=== PATIENT | female | born 1955 | race Caucasian/White ===

== ENCOUNTER 2022-10-21 13:04 | Emergency (ER) | payer MEDICARE, OTHER, SELFPAY ==
[2022-10-21] VITALS (8 sets, daily range): BP systolic 112–141; BP diastolic 59–78; PULSE 55–60; RESP 12–26; TEMP 36.2; O2SAT 95–97; BMI 31.9
--- NOTE | 2022-10-21 14:30 | ED_ITS ---
HPI - Chest Pain General Chief Complaint: Chest Pain Stated Complaint: Chest pain Time Seen by Provider: 10/21/22 13:29 History of Present Illness HPI narrative: This 67-year-old female comes in reporting sudden onset of chest pain that began about 2-1/2 hours prior to arrival. She states that she was not doing anything exertional and in a standing position when she had rather sudden onset of chest pain which seemed to radiate into her back. She rated this pain at 8/10 in severity and was located in the lower substernal area. She did not have any nausea, vomiting, lightheadedness, shortness of breath, or diaphoresis. The pain dissipated down to 3/10 in severity when she arrived here about 45-60 minutes later. At the time of my evaluation she is not reporting any pain. She states that the pain is a bit reproducible when palpating in the area of the lower sternum. She does not report any recent injury event or strenuous activity. She does not have any exercise intolerance. She is taking a medication for blood pressure and states that her cholesterol is elevated. She reports that she is prediabetic. She is not a smoker. Related Data Home Medications Medication Instructions Recorded Confirmed albuterol sulfate 90 mcg/actuation 2 puff inhalation Q4H PRN 10/21/22 10/21/22 aerosol inhaler gabapentin 300 mg capsule 300 mg PO Q12H 10/21/22 10/21/22 lamotrigine 100 mg tablet 100 mg PO DAILY 10/21/22 10/21/22 lamotrigine 25 mg tablet 25 mg PO DAILY 10/21/22 10/21/22 metoprolol tartrate 25 mg tablet 25 mg PO DAILY 10/21/22 10/21/22 olanzapine 5 mg tablet 5 mg PO DAILY 10/21/22 10/21/22 trazodone 50 mg tablet 50 mg PO HS 10/21/22 10/21/22 warfarin 4 mg tablet 4 mg PO DAILY 10/21/22 10/21/22 Allergies Allergy/AdvReac Type Severity Reaction Status Date / Time No Known Drug Allergies Allergy Verified 10/21/22 14:07 Review of Systems Status of ROS Reports: 10 or more systems reviewed and unremarkable except as noted in History and below Narrative Constitutional: No fevers, no weight gain or loss. Eyes: No discharge. No vision changes. HENT: No congestion, no sore throat, no ear pain. Cardiovascular: No palpitations. Chest pain as described above. Respiratory: No shortness of breath, no wheezes, no cough. Gastrointestinal: No abdominal pain, no vomiting, no diarrhea. Genitourinary: No dysuria, no hematuria. Musculoskeletal: Normal range of motion. Skin: No rashes, no pruritis. Neurological: No dizziness, weakness, sensory change, speech change. Endo/Heme/Allergies: No bruising or bleeding. No polydipsia. Pysch: no suicidality, no anxiety, no insomnia. All other systems reviewed and are negative. [facility] Medical History (Updated 10/21/22 @ 18:04 by Foster Hernandez MD) Anxiety Asthma Atrial fibrillation Bipolar 1 disorder Depressed Mood disorder Social History Smoking Status: Never smoker Do you use any of these nicotine containing products: None How often do you have a drink containing alcohol: never AUDIT-C Alcohol total score: 0 Non-prescribed substance use: denies use Exam Narrative Exam Narrative: Constitutional: Well-developed, well-nourished, no acute distress. HEENT: Normocephalic, atraumatic. Neck: Normal range of motion. Nontender. Supple. Heart: Regular. No murmurs. Normal rate. Intact distal pulses. Lungs: Clear to auscultation. No wheezes, rhonchi, or rales. Currently no chest discomfort but there is a slight reproducibility of discomfort when palpating at the lower sternum. Abdomen: Normal bowel sounds. Nontender. No rebound tenderness. Genitalia: Deferred. Back: No midline tenderness. Normal range of motion. Extremities: Normal range of motion. No injury. Skin: Intact. No rash. Warm. No erythema or pallor. Neurologic: No altered sensation. No weakness. Alert and oriented. Psychiatric: No suicidality. No anxiety or depression. No insomnia. Nursing notes and vitals signs are reviewed. Const Vital Signs, click to edit/add: Vital Signs - 24 hr 10/21/22 14:00 10/21/22 13:40 10/21/22 14:00 Temperature 97.2 F L Pulse Rate [Right Pulse Oximeter] 58 L 60 59 L Respiratory Rate 16 18 16 Blood Pressure [Right Upper Arm] 135/70 135/70 123/65 Pulse Oximetry 95 96 96 Oxygen Delivery Method Room Air Room Air Room Air 12/29/22 14:30 10/21/22 15:00 10/21/22 15:30 Temperature Pulse Rate [Right Pulse Oximeter] 58 L 56 L 57 L Respiratory Rate 18 12 12 Blood Pressure [Right Upper Arm] 112/60 120/59 L 124/62 Pulse Oximetry 96 96 97 Oxygen Delivery Method Room Air Room Air Room Air 10/21/22 16:00 10/21/22 17:00 10/21/22 17:00 Temperature Pulse Rate [Right Pulse Oximeter] 60 55 L 56 L Respiratory Rate 25 H 16 26 H Blood Pressure [Right Upper Arm] 132/70 116/68 131/64 Pulse Oximetry 97 96 95 Oxygen Delivery Method Room Air Room Air Room Air 10/21/22 17:30 Temperature Pulse Rate [Right Pulse Oximeter] 57 L Respiratory Rate 18 Blood Pressure [Right Upper Arm] 141/78 H Pulse Oximetry 96 Oxygen Delivery Method Room Air Course Vital Signs Vital signs: Initial Vital Signs Pulse Rate 60 10/21/22 13:40 Respiratory Rate 18 10/21/22 13:40 Respiratory Effort 10/21/22 13:40 Respiratory Depth Normal 10/21/22 13:40 Respiratory Pattern 10/21/22 13:40 Blood Pressure 135/70 10/21/22 13:40 Blood Pressure Mean 91 10/21/22 13:40 Blood Pressure Position Sitting 10/21/22 13:40 Pulse Oximetry 96 10/21/22 13:40 Oxygen Delivery Method 10/21/22 13:40 Vital Signs Pulse Rate 60 10/21/22 13:40 Respiratory Rate 18 10/21/22 13:40 Blood Pressure 135/70 10/21/22 13:40 Pulse Oximetry 96 10/21/22 13:40 Oxygen Delivery Method 10/21/22 13:40 Temperature 97.2 F L 10/21/22 14:00 Pulse Rate 57 L 10/21/22 17:30 Respiratory Rate 18 10/21/22 17:30 Blood Pressure 141/78 H 10/21/22 17:30 Pulse Oximetry 96 10/21/22 17:30 Oxygen Delivery Method 10/21/22 17:30 MDM - Chest Pain MDM Narrative Medical decision making narrative: This patient comes in for evaluation of a brief episode of chest pain as described above. She states currently that she does not have any pain at all and feels completely normal. She did not have any nausea, vomiting, lightheadedness, shortness of breath, diaphoresis, or recent exercise intolerance. EKG shows no sinus rhythm but there is a borderline evidence of left bundle branch block. There is no comparison view available. Troponin test returns at 0. Repeat EKG again shows left bundle branch block. The patient was not aware of any prior EKG finding. She does state that she has a history of atrial fibrillation. She states that she is taking warfarin. Her visit here has shown normal sinus rhythm throughout. A repeat troponin level is acquired and this also returns negative. I advised this patient to follow-up with her primary physician and recommended getting an echocardiogram for further evaluation with regard to this EKG finding. Her symptoms today are not very suspicious of a coronary event but more likely related to the GI tract. I did advise her to use an [id number] medicines such as omeprazole. Lab Data Labs: Lab Results 10/21/22 10/21/22 10/21/22 Range/Units 13:50 13:50 13:50 WBC 5.95 (4.50-11.00) K/uL RBC 4.62 (4.00-5.20) m/uL Hgb 14.3 (12.0-16.0) gm/dL Hct 42.8 (33.0-51.0) % MCV 93 (80-100) fL MCH 31 (26-34) pg MCHC 33 (32-36) gm/dL RDW Coeff of Renetta 12.0 (11.5-15.5) % Plt Count 338 (140-440) K/uL Neut % (Auto) 46.0 (42.0-72.0) % Lymph % (Auto) 38.7 (20-44) % [place] % (Auto) 11.8 H (0.0-11.0) % Eos % (Auto) 2.7 (0.0-7.0) % Baso % (Auto) 0.8 (0.0-3.0) % Neut # (Auto) 2.74 (1.7-7.0) K/uL Lymph # (Auto) 2.30 (0.90-2.90) K/uL [place] # (Auto) 0.70 (0.00-0.90) K/UL Eos # (Auto) 0.16 (0.00-0.50) K/uL Baso # (Auto) 0.05 (0.00-0.30) K/uL Sodium 140 (135-149) mmol/L Potassium 4.3 (3.6-5.1) mmol/L Chloride 107 (96-114) mmol/L Carbon Dioxide 25 (20-32) mmol/L BUN 19 (7-30) mg/dL Creatinine 0.8 (0.5-1.5) mg/dL Estimated Creat Clear 53.56 Estimated GFR 80 ml/min Glucose 97 (60-115) mg/dL Calcium 9.3 (8.4-10.6) mg/dL Total Bilirubin 0.4 (0.1-1.5) mg/dL Direct Bilirubin 0.2 (0.0-0.5) mg/dL AST 26 (12-35) U/L ALT 24 (4-35) U/L Alkaline Phosphatase 78 (40-150) U/L Total Protein 7.3 (6.0-8.3) g/dL Albumin 4.4 (3.3-5.0) g/dL POC Troponin I 0.00 L (0.01-0.04) ng/ml 10/21/22 Range/Units 17:25 WBC (4.50-11.00) K/uL RBC (4.00-5.20) m/uL Hgb (12.0-16.0) gm/dL Hct (33.0-51.0) % MCV (80-100) fL MCH (26-34) pg MCHC (32-36) gm/dL RDW Coeff of Renetta (11.5-15.5) % Plt Count (140-440) K/uL Neut % (Auto) (42.0-72.0) % Lymph % (Auto) (20-44) % [place] % (Auto) (0.0-11.0) % Eos % (Auto) (0.0-7.0) % Baso % (Auto) (0.0-3.0) % Neut # (Auto) (1.7-7.0) K/uL Lymph # (Auto) (0.90-2.90) K/uL [place] # (Auto) (0.00-0.90) K/UL Eos # (Auto) (0.00-0.50) K/uL Baso # (Auto) (0.00-0.30) K/uL Sodium (135-149) mmol/L Potassium (3.6-5.1) mmol/L Chloride (96-114) mmol/L Carbon Dioxide (20-32) mmol/L BUN (7-30) mg/dL Creatinine (0.5-1.5) mg/dL Estimated Creat Clear Estimated GFR ml/min Glucose (60-115) mg/dL Calcium (8.4-10.6) mg/dL Total Bilirubin (0.1-1.5) mg/dL Direct Bilirubin (0.0-0.5) mg/dL AST (12-35) U/L ALT (4-35) U/L Alkaline Phosphatase (40-150) U/L Total Protein (6.0-8.3) g/dL Albumin (3.3-5.0) g/dL POC Troponin I 0.01 (0.01-0.04) ng/ml ECG Data Attestation: I personally reviewed and interpreted this ECG as follows: Interpretation: Sinus rhythm. Rate is 59 beats per minute. There is a left bundle branch block with a QRS interval of 474 ms. no prior EKG is available for comparison. Discharge Plan Discharge Clinical Impression: Atypical chest pain Patient Disposition: Home, Self-Care Condition: Improved Additional Instructions: Follow-up with primary physician to review cardiac rhythm and consider e chocardiogram for a new finding of left bundle branch block. Return if recurrent or worsening symptoms occur. Prescriptions: No Action albuterol sulfate 90 mcg/actuation HFA aerosol inhaler 2 puff INHALATION Q4H PRN gabapentin 300 mg capsule 300 mg PO Q12H lamotrigine 100 mg tablet 100 mg PO DAILY lamotrigine 25 mg tablet 25 mg PO DAILY metoprolol tartrate 25 mg tablet 25 mg PO DAILY olanzapine 5 mg tablet 5 mg PO DAILY trazodone 50 mg tablet 50 mg PO HS warfarin 4 mg tablet 4 mg PO DAILY Follow Up/Referrals: Tushar Jamison MD [Primary Care Provider] - Stand Alone Forms: [employer] Info Instructions
[2022-10-21 14:41] LABS: Basophils Absolute Auto 0.05 K/uL (0.00-0.30); Basophils Percent Auto 0.8 % (0.0-3.0); Eosinophils Absolute Auto 0.16 K/uL (0.00-0.50); Eosinophils Percent Auto 2.7 % (0.0-7.0); Hematocrit 42.8 % (33.0-51.0); Hemoglobin* 14.3 gm/dL (12.0-16.0); Lymphocytes Percent Auto 38.7 % (20-44); Mean Corpuscular HGB Conc 33 gm/dL (32-36); Mean Corpuscular Hemoglobin 31 pg (26-34); Mean Corpuscular Volume 93 fL (80-100); Monocytes Percent Auto 11.8 % (0.0-11.0); Neutrophils Absolute Auto 2.74 K/uL (1.7-7.0); Platelet Count* 338 K/uL (140-440); Red Blood Count 4.62 m/uL (4.00-5.20); White Blood Count* 5.95 K/uL (4.50-11.00)
[2022-10-21 14:49] LABS: Slide Review Reflex No
[2022-10-21 14:56] LABS: Albumin* 4.4 g/dL (3.3-5.0); Chloride* 107 mmol/L (96-114)
[2022-10-21 14:57] LABS: Potassium* 4.3 mmol/L (3.6-5.1); Sodium* 140 mmol/L (135-149)
[2022-10-21 14:59] LABS: Carbon Dioxide* 25 mmol/L (20-32); Creatinine* 0.8 mg/dL (0.5-1.5); Est. Creatinine Clearance* 53.56; Estimated Glomerular Filt Rate 80 ml/min; Total Protein* 7.3 g/dL (6.0-8.3)
[2022-10-21 15:00] LABS: Alanine Aminotransferase* 24 U/L (4-35); Alkaline Phosphatase* 78 U/L (40-150); Aspartate Amino Transferase* 26 U/L (12-35); Bilirubin Direct* 0.2 mg/dL (0.0-0.5); Bilirubin Total* 0.4 mg/dL (0.1-1.5); Blood Urea Nitrogen* 19 mg/dL (7-30); Calcium* 9.3 mg/dL (8.4-10.6); Glucose* 97 mg/dL (60-115)
[2022-10-21 17:44] LABS: Troponin, Point-of-Care* 0.01 ng/ml (0.01-0.04)
== END 2022-10-21 18:30 | disposition home or self-care (01) ==
PROVIDERS: Emergency Provider Emergency Medicine Emergency Medical Services; PCP Family Medicine
DX: R07.9 Chest pain, unspecified (principal)
CPT/HCPCS: 36415; 80048; 80076; 84484; 85025; 93005; 99284; 99285

== ENCOUNTER 2022-11-02 14:23 | Outpatient (CLI) | payer MEDICARE, OTHER, SELFPAY ==
[2022-11-02 17:07] VITALS: BMI 31.8
== END 2022-11-02 14:24 | disposition home or self-care (01) ==
PROVIDERS: PCP Family Medicine; Visit Provider Student in an Organized Health Care Education/Training Program
DX: E66.01 Morbid (severe) obesity due to excess calories (principal); Z71.3 Dietary counseling and surveillance
CPT/HCPCS: 99211

== ENCOUNTER 2022-11-25 11:27 | Outpatient (CLI) | payer MEDICARE, OTHER, SELFPAY ==
[2022-11-25 11:23] VITALS: BMI 31.7
== END 2022-11-25 11:28 | disposition home or self-care (01) ==
LOC: NUTRITION 11:28
PROVIDERS: PCP Student in an Organized Health Care Education/Training Program; Visit Provider Dietitian, Registered
DX: E66.9 Obesity, unspecified (principal); Z71.3 Dietary counseling and surveillance
CPT/HCPCS: 99211

== ENCOUNTER 2023-01-06 10:00 | Outpatient (CLI) | payer MEDICARE, OTHER, SELFPAY ==
[2023-01-06 11:40] VITALS: BMI 31.7
== END 2023-01-06 10:01 | disposition home or self-care (01) ==
LOC: NUTRITION 10:00
PROVIDERS: PCP Student in an Organized Health Care Education/Training Program; Visit Provider Dietitian, Registered
DX: E66.9 Obesity, unspecified (principal); Z71.3 Dietary counseling and surveillance
CPT/HCPCS: 99211

== ENCOUNTER 2023-01-10 09:15 | Outpatient (RCR) | payer MEDICARE, OTHER, SELFPAY | END 2023-01-10 12:38 | disposition home or self-care (01) | PROVIDERS: PCP Family Medicine; Visit Provider Student in an Organized Health Care Education/Training Program | DX: M22.2X1 Patellofemoral disorders, right knee (principal); Z51.89 Encounter for other specified aftercare | CPT/HCPCS: 97110; 97112; 97116; 97140; 97162 ==

== ENCOUNTER 2023-02-03 09:59 | Outpatient (CLI) | payer MEDICARE, OTHER, SELFPAY ==
[2023-02-03 10:58] VITALS: BMI 31.8
== END 2023-02-03 10:00 | disposition home or self-care (01) ==
LOC: NUTRITION 10:00
PROVIDERS: PCP Student in an Organized Health Care Education/Training Program; Visit Provider Dietitian, Registered
DX: E66.9 Obesity, unspecified (principal); Z71.3 Dietary counseling and surveillance
CPT/HCPCS: 99211

== ENCOUNTER 2023-04-14 10:03 | Outpatient (CLI) | payer MEDICARE, OTHER, SELFPAY ==
[2023-04-14 11:20] VITALS: BMI 32.1
== END 2023-04-14 10:04 | disposition home or self-care (01) ==
LOC: NUTRITION 10:04
PROVIDERS: PCP Student in an Organized Health Care Education/Training Program; Visit Provider Student in an Organized Health Care Education/Training Program
DX: E66.9 Obesity, unspecified (principal); Z71.3 Dietary counseling and surveillance
CPT/HCPCS: 99211

== ENCOUNTER 2023-04-29 10:03 | Outpatient (CLI) | payer MEDICARE, OTHER, SELFPAY ==
[2023-04-29 10:39] VITALS: BMI 32.3
== END 2023-04-29 10:04 | disposition home or self-care (01) ==
LOC: NUTRITION 10:03
PROVIDERS: PCP Student in an Organized Health Care Education/Training Program; Visit Provider Student in an Organized Health Care Education/Training Program
DX: E66.9 Obesity, unspecified (principal); Z71.3 Dietary counseling and surveillance
CPT/HCPCS: 99211

== ENCOUNTER 2024-05-03 09:15 | Outpatient (RCR) | payer MEDICARE, OTHER, SELFPAY | END 2024-07-11 11:43 | disposition home or self-care (01) | PROVIDERS: PCP Student in an Organized Health Care Education/Training Program; Visit Provider Student in an Organized Health Care Education/Training Program | DX: R42 Dizziness and giddiness (principal); Z51.89 Encounter for other specified aftercare | CPT/HCPCS: 95992; 97110; 97140; 97161 ==

== ENCOUNTER 2024-08-24 16:28 | Emergency (ER) | payer MEDICARE, OTHER, SELFPAY ==
[2024-08-24 16:43] VITALS: BP 121/73; PULSE 64; RESP 18; TEMP 36.7; O2SAT 95; BMI 30.4
--- NOTE | 2024-08-24 17:06 | CRLHL7_ITS ---
For Patients: As a result of the Century Cures Act, medical imaging exams and procedure reports are released immediately into your electronic medical record. You may view this report before your referring provider. If you have questions, please contact your health care provider. DATE: 08/24/2024 CLINICAL HISTORY: Patient with syncope 2 days ago, chiropractic manipulation. TECHNIQUE: Standard helical CT image acquisition of the neck up to the skull base after bolus intravenous contrast enhancement. 2D and 3D MIP images for post-processing were performed and interpreted on an independent workstation and 3D images were permanently archived. COMPARISON: CT same day. FINDINGS: There is streak artifact from the patient`s shoulders. There is no vertebral artery dissection. There is mild extrinsic compression of the non-dominant right vertebral artery by bony osteophytes without significant narrowing. The origins of the great vessels from the aortic arch are patent. The origin of the right vertebral artery is patent. The origin of the left vertebral artery is patent. The common carotid arteries are patent. There is a mild (<50%) stenosis at the origin of the right internal carotid artery by NASCET criteria. This is caused by non-calcified plaque with a <2mm residual lumen. There is plaque without stenosis at the origin of the left internal carotid artery by NASCET criteria. The rest of the cervical segments of the internal carotid arteries are patent up to the skull base. The left vertebral artery is dominant. The cervical segments of the vertebral arteries are patent up to the skull base. The visualized lung apices are unremarkable. The thyroid gland is unremarkable. The soft tissues of the neck are unremarkable. There are degenerative changes in the cervical spine. IMPRESSION: There is streak artifact from the patient`s shoulders. 1. No vertebral artery dissection. There is mild extrinsic compression of the non-dominant right vertebral artery by bony osteophytes without significant narrowing. 2. Mild (<50%) stenosis at the origin of the right internal carotid artery by NASCET criteria. This is caused by non-calcified plaque with a <2mm residual lumen. Please note that all CT scans at this facility use dose modulation, iterative reconstruction, and/or weight-based dosing when appropriate to reduce radiation dose to as low as reasonably achievable. Dictated by Susan Peterson MD @ 08/24/2024 7:18:02 PM (Electronically Signed)
--- NOTE | 2024-08-24 17:06 | CRLHL7_ITS ---
For Patients: As a result of the Century Cures Act, medical imaging exams and procedure reports are released immediately into your electronic medical record. You may view this report before your referring provider. If you have questions, please contact your health care provider. DATE: 08/24/2024 CLINICAL HISTORY: Patient with syncope. TECHNIQUE: Standard helical CT image acquisition through the intracranial circulation following intravenous administration of contrast material with bolus tracking. 2D and 3D MIP images for post-processing were performed and interpreted on an independent workstation and 3D images were permanently archived. COMPARISON: CT same day. FINDINGS: There is no cerebral aneurysm or large vessel occlusion. The right internal carotid artery is normal. The right middle cerebral artery and its branches are normal. The right anterior cerebral artery and its branches are normal. The left internal carotid artery is normal. The left middle cerebral artery and its branches are normal. The left anterior cerebral artery and its branches are normal. The anterior communicating artery is well visualized and appears normal. The right vertebral artery and PICA are normal. The left vertebral artery and PICA are normal. The left vertebral artery is dominant. The basilar artery is patent and appears normal. The right posterior cerebral artery is normal. The left posterior cerebral artery is normal. The visualized venous structures are patent. IMPRESSION: Patent proximal intracranial vasculature without intracranial aneurysms. Please note that all CT scans at this facility use dose modulation, iterative reconstruction, and/or weight-based dosing when appropriate to reduce radiation dose to as low as reasonably achievable. Dictated by Susan Peterson MD @ 08/24/2024 7:21:14 PM (Electronically Signed)
--- NOTE | 2024-08-24 17:07 | CRLHL7_ITS ---
For Patients: As a result of the Cures Act, medical imaging exams and procedure reports are released immediately into your electronic medical record. You may view this report before your referring provider. If you have questions, please contact your health care provider. INDICATION: Syncope. Recent chiropractic next adjustment. COMPARISON: None. TECHNIQUE: Noncontrast CT head. FINDINGS: Normal brain parenchymal morphology. No acute intracranial hemorrhage, acute infarct, focal edema, mass effect, or fracture. No midline shift. No abnormal ventricular dilatation. Normal calvarium and skull base. Visualized paranasal sinuses mastoid air cells are clear. Normal orbits bilaterally. IMPRESSION: 1. No acute intracranial abnormality. 2. Normal brain parenchymal morphology Please note that all CT scans at this facility use dose modulation, iterative reconstruction, and/or weight-based dosing when appropriate to reduce radiation dose to as low as reasonably achievable. Dictated by Calin Melendrez MD @ 08/24/2024 6:09:13 PM (Electronically Signed)
--- NOTE | 2024-08-24 17:09 | ED.SYNCOPE ---
HPI - Syncope General Date Seen: 08/24/24 Chief Complaint: Syncope/Fainted Stated Complaint: fainted, sent from [facility] Time Seen by Provider: 08/24/24 16:40 Source: patient Mode of arrival: ambulatory Limitations: no limitations History of Present Illness HPI narrative: Patient is a 68-year-old female presenting to the emergency department for syncopal episode that occurred 2 days ago. She is having chronic headaches that the [place] being caused by tension in her neck. She went to the chiropractor 2 days ago and had a neck adjustment and in the late morning. About an hour to after that she took a tizanidine pill for the 1st time to try and help with her neck pain and headache. She then got up and was feeling like her legs were weak and she was feeling very lightheaded. She then felt due to this. She states she did not lose consciousness during this fall and denies hitting her head. She was feeling week the rest of the day but today she feels back to normal. She had a follow-up in the clinic for evaluation of the syncopal episode and was told to come to the emergency department for CT scans for possible aortic dissection due to the recent chiropractic appointment. She states right now she feels completely back to normal and is denying chest pain, shortness of breath, lightheadedness, dizziness, weakness, numbness, abdominal pain, vision changes. No other concerns noted. Has had previous episode of AFib and is on warfarin. States she is not currently in AFib as far as she is aware of. Related Data Home Medications ?Medication ?Instructions ?Recorded ?Confirmed albuterol sulfate 90 mcg/actuation 2 puff inhalation Q4H PRN 10/21/22 08/24/24 aerosol inhaler gabapentin 300 mg capsule 300 mg PO Q12H 10/21/22 08/24/24 lamotrigine 100 mg tablet 100 mg PO DAILY 10/21/22 08/24/24 lamotrigine 25 mg tablet 25 mg PO DAILY 10/21/22 10/21/22 metoprolol tartrate 25 mg tablet 25 mg PO DAILY 10/21/22 08/24/24 olanzapine 5 mg tablet 5 mg PO DAILY 10/21/22 08/24/24 trazodone 50 mg tablet 50 mg PO HS 12/29/22 11/01/24 warfarin 4 mg tablet 4 mg PO DAILY 10/21/22 08/24/24 duloxetine 30 mg capsule,delayed 30 mg PO DAILY 08/24/24 08/24/24 release duloxetine 60 mg capsule,delayed 60 mg PO DAILY 08/24/24 08/24/24 release rosuvastatin 5 mg tablet 5 mg PO DAILY 08/24/24 08/24/24 tizanidine 2 mg tablet PO 08/24/24 Allergies Allergy/AdvReac Type Severity Reaction Status Date / Time No Known Drug Allergies Allergy Verified 08/24/24 17:54 Review of Systems Status of ROS: Reports: 10 or more systems reviewed and unremarkable except as noted in History and below [facility] Medical History Anxiety ?F41.9 - Anxiety disorder, unspecified (ICD-10) Depressed ?F32.A - Depression, unspecified (ICD-10) Asthma ?J45.909 - Unspecified asthma, uncomplicated (ICD-10) Mood disorder ?F39 - Unspecified mood [affective] disorder (ICD-10) Bipolar 1 disorder ?F31.9 - Bipolar disorder, unspecified (ICD-10) Atrial fibrillation ?I48.91 - Unspecified atrial fibrillation (ICD-10) Social History Smoking Status: Never smoker Do you use any of these nicotine containing products: None How often do you have a drink containing alcohol: never AUDIT-C Alcohol total score: 0 Non-prescribed substance use: denies use Exam Narrative: Exam Narrative: Const: Well-nourished, Well-developed, in no distress Eyes: PERRL, no conjunctival injection, and symmetrical lids HENT: Atraumatic external nose and ears. Moist mucous membranes. Neck: Symmetric, trachea midline, No thyromegaly. CVS: RRR, No murmurs or gallops. Peripheral pulses 2+ and equal in all extremities RESP: Unlabored respiratory effort. Clear to auscultation bilaterally. GI: Nontender/Nondistended, No rebound or guarding. MSK:Extremities w/o deformity, Normal Active ROM Skin: Warm, Dry. No rashes or lesions. Neuro: Normal Muscle tone, No focal neurological deficits. Psych: Awake, Alert, & Oriented x3. Appropriate mood and affect. Const: Vital Signs, click to edit/add: Vital Signs - 24 hr 08/24/24 16:43 08/24/24 19:05 Temperature 98.0 F Pulse Rate [Right Pulse Oximeter] 64 Pulse Rate [orthos tatic lying] 59 L Pulse Rate [orthos tatic sitting] 66 Pulse Rate [orthos tatic standing] 63 Respiratory Rate 18 Blood Pressure [Ri ght Upper Arm] 121/73 Blood Pressure [or thostatic lying] 148/77 H Blood Pressure [or thostatic sitting] 152/92 H Blood Pressure [or thostatic standing ] 137/84 Pulse Oximetry 95 Oxygen Delivery Me thod Room Air Course Vital Signs Vital signs: Initial Vital Signs Temperature 98.0 F 08/24/24 16:43 Temperature Source Temporal Artery Scan 08/24/24 16:43 Pulse Rate 64 08/24/24 16:43 Respiratory Rate 18 08/24/24 16:43 Blood Pressure 121/73 08/24/24 16:43 Blood Pressure Mean 89 08/24/24 16:43 Blood Pressure Position Sitting 08/24/24 16:43 Pulse Oximetry 95 08/24/24 16:43 Oxygen Delivery Method Room Air 08/24/24 16:43 Vital Signs Temperature 98.0 F 08/24/24 16:43 Pulse Rate 64 08/24/24 16:43 Respiratory Rate 18 08/24/24 16:43 Blood Pressure 121/73 08/24/24 16:43 Pulse Oximetry 95 08/24/24 16:43 Oxygen Delivery Method Room Air 08/24/24 16:43 Temperature 98.0 F 08/24/24 16:43 Pulse Rate 59 L 08/24/24 19:05 Respiratory Rate 18 08/24/24 16:43 Blood Pressure 148/77 H 08/24/24 19:05 Pulse Oximetry 95 08/24/24 16:43 Oxygen Delivery Method Room Air 08/24/24 16:43 MDM - Syncope MDM Narrative Medical decision making narrative: Patient is a 68-year-old female presenting to emergency department for an episode of syncope. She had a recent neck manipulation by a chiropractor so there was concern by primary care provider that she had a vertebral artery dissection. Was sent here for CTA skates. She also states she fell a few days ago with a syncopal episode while she does not think she had her head I will do a CT scan of the head. EKG done to look for signs of arrhythmias. Also check electrolytes for signs of electrolyte abnormalities and CBC for signs of anemia or infection. She is on warfarin so INR will be checked. Troponin also ordered. Lab work returned showing no concerning abnormalities. EKG appears like previous EKGs on file and no concerning abnormalities. Troponin within normal limits. Considering the syncopal episode of happened 2 days ago I do not think is necessary to repeat the troponin. She has continued to be asymptomatic we did do orthostatic blood pressure showing no concerning abnormalities. CTA she has preliminary read show concerns for possible small subtle aortic dissections so I did speak to Dr. Peterson of [facility] at [place]. He reviewed the images and he says they look normal him his standpoint patient is safe for discharge. Patient is agreeable with this plan will follow-up closely with her primary care provider. Lab Data Labs: Lab Results 08/24/24 Range/Units 17:15 WBC 5.55 (4.50-11.00) K/uL RBC 4.38 (4.00-5.20) m/uL Hgb 13.5 (12.0-16.0) gm/dL Hct 40.5 (33.0-51.0) % MCV 93 (80-100) fL MCH 31 (26-34) pg MCHC 33 (32-36) gm/dL RDW Coeff of Renetta 12.1 (11.5-15.5) % Plt Count 283 (140-440) K/uL Neut % (Auto) 46.5 (42.0-72.0) % Lymph % (Auto) 39.5 (20-44) % Giles % (Auto) 9.5 (0.0-11.0) % Eos % (Auto) 3.2 (0.0-7.0) % Baso % (Auto) 1.1 (0.0-3.0) % Neut # (Auto) 2.58 (1.7-7.0) K/uL Lymph # (Auto) 2.19 (0.90-2.90) K/uL Giles # (Auto) 0.50 (0.00-0.90) K/UL Eos # (Auto) 0.18 (0.00-0.50) K/uL Baso # (Auto) 0.06 (0.00-0.30) K/uL Abs Immat Gran (auto) 0.01 (0.00-0.30) K/uL Imm/Tot Granulo (auto) 0.2 % INR 1.74 H (0.91-1.10) Sodium 136 (135-149) mmol/L Potassium 4.1 (3.6-5.1) mmol/L Chloride 103 (96-114) mmol/L Carbon Dioxide 25 (20-32) mmol/L Anion Gap 8 (7-15) mEq/L BUN 18 (7-30) mg/dL Creatinine 0.8 (0.5-1.5) mg/dL Estimated Creat Clear 52.81 Estimated GFR 79 ml/min Glucose 147 H (60-115) mg/dL Calcium 9.6 (8.4-10.6) mg/dL Magnesium 2.4 (1.5-2.6) mg/dL POC Creatinine 1.0 (0.6-1.3) mg/dl POC Troponin I 0.01 (0.01-0.04) ng/ml Imaging Data CT scan - head: Attestation: I have reviewed the pertinent imaging results. Radiologist's impression: 1. No acute intracranial abnormality. 2. Normal brain parenchymal morphology Please note that all CT scans at this facility use dose modulation, iterative reconstruction, and/or weight-based dosing when appropriate to reduce radiation dose to as low as reasonably achievable. Dictated by Calin Melendrez MD @ 08/24/2024 6:09:13 PM CTA head: Attestation: I have reviewed the pertinent imaging results. Radiologist's impression: Patent proximal intracranial vasculature without intracranial aneurysms. Please note that all CT scans at this facility use dose modulation, iterative reconstruction, and/or weight-based dosing when appropriate to reduce radiation dose to as low as reasonably achievable. Dictated by Susan Peterson MD @ 08/24/2024 7:21:14 PM CTA neck: Attestation: I have reviewed the pertinent imaging results. Radiologist's impression: There is streak artifact from the patient`s shoulders. 1. No vertebral artery dissection. There is mild extrinsic compression of the non-dominant right vertebral artery by bony osteophytes without significant narrowing. 2. Mild (<50%) stenosis at the origin of the right internal carotid artery by NASCET criteria. This is caused by non-calcified plaque with a <2mm residual lumen. Please note that all CT scans at this facility use dose modulation, iterative reconstruction, and/or weight-based dosing when appropriate to reduce radiation dose to as low as reasonably achievable. Dictated by Susan Peterson MD @ 08/24/2024 7:18:02 PM ECG Data Attestation: I personally reviewed and interpreted this ECG as follows: Prior ECG tracings: available for review Interpretation: Normal sinus rhythm with a rate of 60 beats per minute, normal axis, left bundle-branch block, normal MO interval, no ST or T-wave abnormalities. Appears similar previous EKG on file. Discharge Plan Discharge Clinical Impression: Syncope Qualifiers: Syncope type: unspecified Qualified Code(s): R55 - Syncope and collapse Instructions: Near Syncope (ED) Additional Instructions: Have close follow-up with your primary care provider as they may want you to follow-up with neurology. Return to emergency department for new or worsening symptoms. You also have less than 50% stenosis severe right carotid artery. Is recommended you follow up with your primary care provider about this. Prescriptions: No Action albuterol sulfate 90 mcg/actuation HFA aerosol inhaler 2 puff INHALATION Q4H PRN gabapentin 300 mg capsule 300 mg PO Q12H lamotrigine 100 mg tablet 100 mg PO DAILY lamotrigine 25 mg tablet 25 mg PO DAILY metoprolol tartrate 25 mg tablet 25 mg PO DAILY olanzapine 5 mg tablet 5 mg PO DAILY trazodone 50 mg tablet 50 mg PO HS warfarin 4 mg tablet 4 mg PO DAILY tizanidine 2 mg tablet PO rosuvastatin 5 mg tablet 5 mg PO DAILY duloxetine 30 mg capsule,delayed release(DR/EC) 30 mg PO DAILY duloxetine 60 mg capsule,delayed release(DR/EC) 60 mg PO DAILY Follow Up/Referrals: JOANNA MANDEL DO [Primary Care Provider] - Stand Alone Forms: [employer] Info Instructions
[2024-08-24 17:28] LABS: Basophils Absolute Auto 0.06 K/uL (0.00-0.30); Basophils Percent Auto 1.1 % (0.0-3.0); Eosinophils Absolute Auto 0.18 K/uL (0.00-0.50); Eosinophils Percent Auto 3.2 % (0.0-7.0); Hematocrit 40.5 % (33.0-51.0); Hemoglobin* 13.5 gm/dL (12.0-16.0); Immature Granulocytes Abs Auto 0.01 K/uL (0.00-0.30); Immature Granulocytes Pct Auto 0.2 %; Lymphocytes Absolute Auto 2.19 K/uL (0.90-2.90); Lymphocytes Percent Auto 39.5 % (20-44); Mean Corpuscular HGB Conc 33 gm/dL (32-36); Mean Corpuscular Hemoglobin 31 pg (26-34); Mean Corpuscular Volume 93 fL (80-100); Monocytes Percent Auto 9.5 % (0.0-11.0); Neutrophils Absolute Auto 2.58 K/uL (1.7-7.0); Neutrophils Percent Auto 46.5 % (42.0-72.0); Platelet Count* 283 K/uL (140-440); RDW Coefficient of Variation % 12.1 % (11.5-15.5); Red Blood Count 4.38 m/uL (4.00-5.20); White Blood Count* 5.55 K/uL (4.50-11.00)
[2024-08-24 17:31] LABS: Slide Review Reflex No
[2024-08-24 17:34] LABS: Troponin, Point-of-Care* 0.01 ng/ml (0.01-0.04)
[2024-08-24 17:39] LABS: Chloride* 103 mmol/L (96-114)
[2024-08-24 17:40] LABS: Potassium* 4.1 mmol/L (3.6-5.1); Sodium* 136 mmol/L (135-149)
[2024-08-24 17:42] LABS: Anion Gap 8 mEq/L (7-15); Carbon Dioxide* 25 mmol/L (20-32); Creatinine* 0.8 mg/dL (0.5-1.5); Est. Creatinine Clearance* 52.81; Estimated Glomerular Filt Rate 79 ml/min; INR 1.74 (0.91-1.10); Prothrombin Time 21.6 Seconds
[2024-08-24 17:43] LABS: Blood Urea Nitrogen* 18 mg/dL (7-30); Calcium* 9.6 mg/dL (8.4-10.6); Glucose* 147 mg/dL (60-115); Magnesium* 2.4 mg/dL (1.5-2.6)
[2024-08-24 19:05] VITALS: BP 137/84; BP 148/77; BP 152/92; PULSE 59; PULSE 63; PULSE 66
== END 2024-08-24 19:28 | disposition home or self-care (01) ==
PROVIDERS: Emergency Provider Student in an Organized Health Care Education/Training Program; PCP Student in an Organized Health Care Education/Training Program
DX: R55 Syncope and collapse (principal)
CPT/HCPCS: 36415; 70450; 70496; 70498; 80048; 82565; 83735; 84484; 85025; 85610; 93005; 99283; 99284; 99285; Q9967

== ENCOUNTER 2025-04-10 14:30 | Outpatient (RCR) | payer MEDICARE, OTHER, SELFPAY | END 2025-07-22 09:49 | disposition home or self-care (01) | PROVIDERS: PCP Student in an Organized Health Care Education/Training Program; Visit Provider Student in an Organized Health Care Education/Training Program | DX: G44.229 Chronic tension-type headache, not intractable (principal); M54.2 Cervicalgia; Z51.89 Encounter for other specified aftercare | CPT/HCPCS: 97110; 97112; 97140; 97162 ==